=== PATIENT | female | born 1985 | race Caucasian/White ===

== ENCOUNTER 2016-07-15 11:17 | Inpatient (IN) | payer MEDICARE, MEDICAID ==
[~2016-07-15] VITALS: Ht 165.1 cm; Wt 85.5 kg
[2016-07-15] MEDS ORDERED: PALI156D IM (13:32)
[2016-07-15 13:58] VITALS: BP 125/61
[2016-07-15] MEDS ORDERED: INFLUENZA VIRUS VACCINE QVS 2016-17 (3YR+)/PF 60 MCG/0.5 ML SYRINGE IM ONE (14:15)
[2016-07-15] MEDS ORDERED: PALIPERIDONE PALMITATE 156 MG/ML SYRINGE IM SCH (16:00)
[2016-07-15 16:11] VITALS: BP 119/65
[2016-07-15 16:12] VITALS: BP 115/63
[2016-07-15 21:15] VITALS: BP 102/64
[2016-07-15] MEDS: ACETAMINOPHEN 325 MG TABLET PO PRN (21:15)
[2016-07-15 22:15] VITALS: BP 111/60
[2016-07-15] MEDS ORDERED: AZITHROMYCIN 250 MG TABLET PO ONE (22:31)
[2016-07-16 04:00] VITALS: BP 132/61
[2016-07-16] MEDS: IBUPROFEN 600 MG TABLET PO PRN (04:07)
[2016-07-16 08:19] LABS: BASOPHILS % (AUTO) 0.4 % (0.0-2.0); EOSINOPHILS % (AUTO) 0.8 % (1.0-6.0); HEMATOCRIT 38.6 % (36-46); HEMOGLOBIN 12.4 g/dL (12.0-16.0); LYMPHOCYTES # (AUTO) 1.5 K/uL (1.0-4.8); MEAN CORPUSCULAR HEMOGLOBIN 29.5 pg (26.0-34.0); MEAN CORPUSCULAR HGB CONC 32.2 G/dL (31.0-37.0); MEAN CORPUSCULAR VOLUME 92 fL (80-100); MONOCYTES # (AUTO) 1.3 K/uL (0.1-1.0); MONOCYTES % (AUTO) 11.5 % (2.0-9.0); NEUTROPHILS % (AUTO) 73.3 % (40.0-70.0); PLATELET COUNT (AUTO) 228 K/uL (150-450); RED BLOOD CELL COUNT(AUTO) 4.21 MIL/uL (4.00-5.20); RED CELL DISTRIBUTION WIDTH 13.6 % (11.5-14.5); WHITE BLOOD COUNT (AUTO) 10.9 K/uL (4.5-11.0)
[2016-07-16 08:28] VITALS: BP 126/84
[2016-07-16 08:29] LABS: HEMOGLOBIN A1C 5.9 % (4.5-6.2)
[2016-07-16 08:48] LABS: ALANINE AMINOTRANSFERASE 21 U/L (12-78); ALBUMIN 2.9 g/dL (3.4-5.0); ANION GAP 12 mmol/L (8-16); ASPARTATE AMINOTRANSFERASE 14 U/L (15-37); BILIRUBIN,TOTAL 0.2 mg/dL (0.1-1.0); CALCIUM, TOTAL 8.1 mg/dL (8.8-10.5); CARBON DIOXIDE 22 mmol/L (22-29); CHLORIDE 102 mmol/L (98-107); CHOL/HDL RATIO 2.3 (3.9-5.7); CREATINE KINASE, TOTAL 60 U/L (26-192); CREATININE 0.84 mg/dL (0.60-1.30); GLOMERULAR FILTR. RATE CALC > 60 mL/min (>60); POTASSIUM 3.2 mmol/L (3.5-5.1); SODIUM SERUM 136 mmol/L (136-145); THYROID STIMULATING HORMONE 3.22 uIU/mL (0.36-3.74); UREA NITROGEN, BLOOD 11 mg/dL (7-18)
[2016-07-16] MEDS ORDERED: PALIPERIDONE PALMITATE 156 MG/ML SYRINGE IM SCH (09:00)
[2016-07-16] MEDS: AZITHROMYCIN 250 MG TABLET PO SCH (09:43)
[2016-07-16] MEDS: LORazepam 2 MG TABLET PO PRN (09:44)
[2016-07-16] MEDS: HALOPERIDOL 5 MG TABLET PO PRN (09:44)
[2016-07-16] MEDS ORDERED: POTASSIUM CHLORIDE 20 MEQ ER TABLET PO ONE (11:15)
[2016-07-16] MEDS ORDERED: BENZOCAINE/MENTHOL LOZENGE PO PRN (15:45)
[2016-07-16 15:46] VITALS: BP 110/63
[2016-07-16] MEDS: ACETAMINOPHEN 325 MG TABLET PO PRN ×2 (15:46→22:50)
[2016-07-16 16:18] VITALS: BP 98/68
[2016-07-17 01:45] VITALS: BP 109/59
[2016-07-17] MEDS: ZOLPIDEM TARTRATE 10 MG TABLET PO PRN (01:46)
[2016-07-17 08:15] VITALS: BP 117/63
[2016-07-17] MEDS: LORazepam 2 MG TABLET PO PRN ×3 (08:25→20:25)
[2016-07-17] MEDS: AZITHROMYCIN 250 MG TABLET PO SCH (08:25)
[2016-07-17] MEDS: HALOPERIDOL 5 MG TABLET PO PRN ×2 (08:50→20:44)
[2016-07-17 10:16] LABS: HEPATITIS Bs ANTIGEN SCREEN P Negative (Negative); HEPATITIS C AB SCREEN <0.1 s/co ratio (0.0-0.9)
[2016-07-17 16:16] VITALS: BP 105/58
[2016-07-17 20:25] VITALS: BP 115/68
[2016-07-17] MEDS: IBUPROFEN 600 MG TABLET PO PRN (20:25)
[2016-07-18] MEDS ORDERED: HALOPERIDOL LACTATE 5 MG/ML VIAL ONE (05:12)
[2016-07-18] MEDS ORDERED: DiphenhydrAMINE HCL 50 MG/ML VIAL ONE (05:12)
[2016-07-18] MEDS ORDERED: DiphenhydrAMINE HCL 50 MG/ML VIAL IM ONE (05:15)
[2016-07-18] MEDS ORDERED: LORazepam 2 MG/ML VIAL IM ONE (05:15)
[2016-07-18] MEDS ORDERED: HALOPERIDOL LACTATE 5 MG/ML VIAL IM ONE (05:15)
[2016-07-18] MEDS: AZITHROMYCIN 250 MG TABLET PO SCH (08:41)
[2016-07-18] MEDS: CHOLECALCIFEROL (VIT D3) 2,000 UNITS TABLET PO SCH (09:11)
[2016-07-18] MEDS: HALOPERIDOL 5 MG TABLET PO PRN (14:23)
[2016-07-18] MEDS: LORazepam 2 MG TABLET PO PRN (14:23)
[2016-07-18 16:11] VITALS: BP 131/75
[2016-07-19 01:15] VITALS: BP 105/63
[2016-07-19] MEDS: IBUPROFEN 600 MG TABLET PO PRN (01:18)
[2016-07-19] MEDS: LORazepam 2 MG TABLET PO PRN ×2 (08:24→16:02)
[2016-07-19] MEDS: AZITHROMYCIN 250 MG TABLET PO SCH (08:24)
[2016-07-19] MEDS: CHOLECALCIFEROL (VIT D3) 2,000 UNITS TABLET PO SCH (08:24)
[2016-07-19] MEDS: HALOPERIDOL 5 MG TABLET PO PRN ×2 (08:38→16:02)
[2016-07-19 08:47] VITALS: BP 110/69
[2016-07-19 16:18] VITALS: BP 110/76
[2016-07-20 06:46] VITALS: BP 115/69
[2016-07-20 08:39] VITALS: BP 134/82
[2016-07-20] MEDS: CHOLECALCIFEROL (VIT D3) 2,000 UNITS TABLET PO SCH (09:11)
[2016-07-20] MEDS: HALOPERIDOL 5 MG TABLET PO PRN (09:11)
[2016-07-20] MEDS: LORazepam 2 MG TABLET PO PRN (09:11)
[2016-07-20 16:14] VITALS: BP 112/59
[2016-07-20] MEDS: ZOLPIDEM TARTRATE 10 MG TABLET PO PRN (21:59)
[2016-07-21] MEDS: LORazepam 2 MG TABLET PO PRN ×3 (02:32→16:27)
[2016-07-21] MEDS: HALOPERIDOL 5 MG TABLET PO PRN ×2 (02:32→16:27)
[2016-07-21 02:38] VITALS: BP 122/72
[2016-07-21] MEDS: CHOLECALCIFEROL (VIT D3) 2,000 UNITS TABLET PO SCH (08:35)
[2016-07-21 08:55] VITALS: BP 106/60
[2016-07-21 16:08] VITALS: BP 107/61
[2016-07-21] MEDS ORDERED: PALIPERIDONE 3 MG ER TABLET PO SCH (21:00)
[2016-07-22 05:34] VITALS: BP 130/75
[2016-07-22 08:38] VITALS: BP 113/78
[2016-07-22] MEDS ORDERED: DIVALPROEX SODIUM 500 MG DR TABLET PO SCH ×2 (09:00→21:00)
[2016-07-22] MEDS ORDERED: CHOLECALCIFEROL (VIT D3) 2,000 UNITS TABLET PO SCH (09:00)
[2016-07-22] MEDS ORDERED: BISACODYL 5 MG EC TABLET PO PRN (09:30)
[2016-07-22] MEDS ORDERED: PALI234D IM (12:57)
[2016-07-22] MEDS ORDERED: PALI3 PO (12:58)
[2016-07-22] MEDS ORDERED: DIVA500T35 PO ×2 (13:00→13:01)
[2016-07-22] MEDS ORDERED: CHOL200016 PO (13:02)
[2016-08-13] MEDS ORDERED: PALIPERIDONE PALMITATE 234 MG/1.5 ML SYRINGE IM SCH (09:00)
== END 2016-07-22 14:40 | disposition home or self-care (01) | DRG 885 ==
LOC: B3A 13:28
DX: F31.5 Bipolar disorder, current episode depressed, severe, with psychotic features (principal); F29 Unspecified psychosis not due to a substance or known physiological condition; F15.10 Other stimulant abuse, uncomplicated; F12.90 Cannabis use, unspecified, uncomplicated; E87.6 Hypokalemia; E55.9 Vitamin D deficiency, unspecified; J20.9 Acute bronchitis, unspecified; R73.9 Hyperglycemia, unspecified; F17.200 Nicotine dependence, unspecified, uncomplicated; Z79.899 Other long term (current) drug therapy; Z91.19 Patient's noncompliance with other medical treatment and regimen; Z81.3 Family history of other psychoactive substance abuse and dependence; Z80.8 Family history of malignant neoplasm of other organs or systems
CPT/HCPCS: 80074; 82306; 82607; 82746; 83036; 83735; 84132; 84439; 84443; 86592; 87081; J1200; J1630; J2060

== ENCOUNTER 2017-10-20 13:06 | Emergency (ER) | payer MEDICARE, MEDICAID ==
[~2017-10-20] VITALS: Ht 172.7 cm; Wt 86.4 kg
[~2017-10-20 13:06] MED LIST: CHOL200016 PO; DIVA500T35 PO; PALI234D IM; PALI3 PO
[2017-10-20] MEDS ORDERED: OLAN5TAB2 PO (13:15)
[2017-10-20 15:00] VITALS: BP 127/71
[2017-10-20] MEDS ORDERED: AZITHROMYCIN 250 MG TABLET PO ONE (15:15)
[2017-10-20] MEDS ORDERED: LORazepam 2 MG TABLET PO ONE (15:15)
[2017-10-20] MEDS ORDERED: HALOPERIDOL 5 MG TABLET PO ONE (15:15)
[2017-10-20 15:20] LABS: BASOPHILS % (AUTO) 1.9 % (0.0-2.0); EOSINOPHILS % (AUTO) 3.1 % (1.0-6.0); HEMOGLOBIN 13.1 g/dL (12.0-16.0); LYMPHOCYTES # (AUTO) 3.2 K/uL (1.0-4.8); LYMPHOCYTES % (AUTO) 37.1 % (22.0-44.0); MEAN CORPUSCULAR HGB CONC 35.3 G/dL (31.0-37.0); MEAN CORPUSCULAR VOLUME 88 fL (80-100); MONOCYTES # (AUTO) 1.1 K/uL (0.1-1.0); MONOCYTES % (AUTO) 13.3 % (2.0-9.0); NEUTROPHILS # (AUTO) 3.8 K/uL (1.8-7.7); NEUTROPHILS % (AUTO) 44.6 % (40.0-70.0); PLATELET COUNT (AUTO) 263 K/uL (150-450); RED BLOOD CELL COUNT(AUTO) 4.21 MIL/uL (4.00-5.20); RED CELL DISTRIBUTION WIDTH 13.9 % (11.5-14.5)
[2017-10-20 15:32] LABS: ANION GAP 9 mmol/L (8-16); CALCIUM, TOTAL 8.3 mg/dL (8.8-10.5); CARBON DIOXIDE 25 mmol/L (22-29); CHLORIDE 105 mmol/L (98-107); CREATININE 0.76 mg/dL (0.60-1.30); GLOMERULAR FILTR. RATE CALC > 60 mL/min (>60); GLUCOSE,RANDOM 113 mg/dL (70-110); POTASSIUM 3.3 mmol/L (3.5-5.1); SODIUM SERUM 139 mmol/L (136-145); UREA NITROGEN, BLOOD 15 mg/dL (7-18)
[2017-10-20 15:40] LABS: ALANINE AMINOTRANSFERASE 35 U/L (12-78); ALBUMIN 3.4 g/dL (3.4-5.0); ALKALINE PHOSPHATASE 87 U/L (46-116); ASPARTATE AMINOTRANSFERASE 33 U/L (15-37); BILIRUBIN,TOTAL 0.5 mg/dL (0.1-1.0); TOTAL PROTEIN, SERUM 7.1 g/dL (6.4-8.2)
[2017-10-20 15:41] LABS: AMPHET/METH SCREEN,URINE POSITIVE (NEGATIVE); BARBITURATE SCREEN, URINE NEGATIVE (NEGATIVE); BENZODIAZEPINES SCREEN,URINE NEGATIVE (NEGATIVE); CANNABINOID SCREEN,URINE POSITIVE (NEGATIVE); COCAINE SCREEN,URINE NEGATIVE (NEGATIVE); METHADONE SCREEN, URINE NEGATIVE (NEGATIVE); OPIATE SCREEN,URINE NEGATIVE (NEGATIVE)
[2017-10-20 15:44] LABS: PHENCYCLIDINE SCREEN,URINE NEGATIVE (NEGATIVE)
== END 2017-10-20 16:09 | disposition home or self-care (01) ==
LOC: EMS 13:07
DX: J40 Bronchitis, not specified as acute or chronic (principal); F17.210 Nicotine dependence, cigarettes, uncomplicated; F12.10 Cannabis abuse, uncomplicated; Z79.899 Other long term (current) drug therapy
CPT/HCPCS: 36415; 80053; 80307; 85025; 99284; G0480

== ENCOUNTER 2017-10-23 13:25 | Inpatient (IN) | payer MEDICARE, MEDICAID ==
[~2017-10-23] VITALS: Ht 165.1 cm; Wt 92.5 kg
[~2017-10-23 13:25] MED LIST changes: +OLAN5TAB2 PO
[2017-10-23] MEDS ORDERED: DiphenhydrAMINE HCL 50 MG/ML VIAL IM ONE (14:30)
[2017-10-23] MEDS ORDERED: HALOPERIDOL LACTATE 5 MG/ML VIAL IM ONE (14:30)
[2017-10-23] MEDS ORDERED: LORazepam 2 MG/ML VIAL IM ONE (14:30)
[2017-10-23 14:38] LABS: AMPHET/METH SCREEN,URINE POSITIVE (NEGATIVE); BARBITURATE SCREEN, URINE NEGATIVE (NEGATIVE); BENZODIAZEPINES SCREEN,URINE NEGATIVE (NEGATIVE); CANNABINOID SCREEN,URINE POSITIVE (NEGATIVE); COCAINE SCREEN,URINE NEGATIVE (NEGATIVE); METHADONE SCREEN, URINE NEGATIVE (NEGATIVE); OPIATE SCREEN,URINE NEGATIVE (NEGATIVE)
[2017-10-23 14:40] LABS: PHENCYCLIDINE SCREEN,URINE NEGATIVE (NEGATIVE)
[2017-10-23 14:53] LABS: BASOPHILS % (AUTO) 1.2 % (0.0-2.0); EOSINOPHILS % (AUTO) 2.9 % (1.0-6.0); HEMOGLOBIN 12.9 g/dL (12.0-16.0); LYMPHOCYTES # (AUTO) 2.7 K/uL (1.0-4.8); LYMPHOCYTES % (AUTO) 36.3 % (22.0-44.0); MEAN CORPUSCULAR HEMOGLOBIN 31.3 pg (26.0-34.0); MEAN CORPUSCULAR HGB CONC 34.9 G/dL (31.0-37.0); MEAN CORPUSCULAR VOLUME 90 fL (80-100); MONOCYTES # (AUTO) 0.8 K/uL (0.1-1.0); MONOCYTES % (AUTO) 11.1 % (2.0-9.0); NEUTROPHILS # (AUTO) 3.6 K/uL (1.8-7.7); NEUTROPHILS % (AUTO) 48.5 % (40.0-70.0); PLATELET COUNT (AUTO) 244 K/uL (150-450); RED BLOOD CELL COUNT(AUTO) 4.13 MIL/uL (4.00-5.20); RED CELL DISTRIBUTION WIDTH 13.5 % (11.5-14.5)
[2017-10-23 15:15] LABS: ANION GAP 9 mmol/L (8-16); CALCIUM, TOTAL 7.8 mg/dL (8.8-10.5); CARBON DIOXIDE 23 mmol/L (22-29); CHLORIDE 109 mmol/L (98-107); CREATININE 0.62 mg/dL (0.60-1.30); GLOMERULAR FILTR. RATE CALC > 60 mL/min (>60); GLUCOSE,RANDOM 94 mg/dL (70-110); POTASSIUM 3.7 mmol/L (3.5-5.1); SODIUM SERUM 141 mmol/L (136-145); UREA NITROGEN, BLOOD 9 mg/dL (7-18)
[2017-10-23 15:22] LABS: ALANINE AMINOTRANSFERASE 30 U/L (12-78); ALBUMIN 3.2 g/dL (3.4-5.0); ALKALINE PHOSPHATASE 91 U/L (46-116); ASPARTATE AMINOTRANSFERASE 25 U/L (15-37); BILIRUBIN,TOTAL 0.1 mg/dL (0.1-1.0); TOTAL PROTEIN, SERUM 6.9 g/dL (6.4-8.2)
[2017-10-23 19:56] VITALS: BP 112/65
[2017-10-24 05:36] VITALS: BP 110/70
[2017-10-24] MEDS: DIVALPROEX SODIUM 500 MG DR TABLET PO SCH ×2 (09:00→20:21)
[2017-10-24 09:30] VITALS: BP 113/82
[2017-10-24] MEDS: OLANZapine 5 MG TABLET PO SCH (09:40)
[2017-10-24] MEDS: LORazepam 2 MG TABLET PO PRN (16:44)
[2017-10-24] MEDS: HALOPERIDOL 5 MG TABLET PO PRN (16:44)
[2017-10-24] MEDS: OLANZapine 10 MG TABLET PO SCH (20:21)
[2017-10-24] MEDS: ZOLPIDEM TARTRATE 10 MG TABLET PO PRN (21:21)
[2017-10-25 04:59] VITALS: BP 114/86
[2017-10-25] MEDS: LORazepam 2 MG TABLET PO PRN ×3 (05:01→17:08)
[2017-10-25] MEDS: HALOPERIDOL 5 MG TABLET PO PRN ×3 (05:01→17:08)
[2017-10-25 08:01] LABS: HEMOGLOBIN A1C 6.3 % (4.5-6.2)
[2017-10-25 08:22] VITALS: BP 121/73
[2017-10-25 08:22] LABS: CHOL/HDL RATIO 2.4 (3.9-5.7); FREE T4 (FREE THYROXINE) 1.09 ng/dL (0.76-1.46); THYROID STIMULATING HORMONE 2.1 uIU/mL (0.36-3.74)
[2017-10-25] MEDS: DIVALPROEX SODIUM 500 MG DR TABLET PO SCH ×2 (08:55→21:23)
[2017-10-25] MEDS: OLANZapine 5 MG TABLET PO SCH (08:55)
[2017-10-25 16:16] VITALS: BP 124/70
[2017-10-25] MEDS: OLANZapine 10 MG TABLET PO SCH (21:23)
[2017-10-25] MEDS: ZOLPIDEM TARTRATE 10 MG TABLET PO PRN (22:04)
[2017-10-26 06:46] VITALS: BP 127/73
[2017-10-26] MEDS: LORazepam 2 MG TABLET PO PRN ×3 (06:51→16:37)
[2017-10-26] MEDS: HALOPERIDOL 5 MG TABLET PO PRN ×3 (06:51→16:37)
[2017-10-26] MEDS: OLANZapine 5 MG TABLET PO SCH (08:38)
[2017-10-26] MEDS: DIVALPROEX SODIUM 500 MG DR TABLET PO SCH ×2 (08:39→20:24)
[2017-10-26 09:59] VITALS: BP 125/82
[2017-10-26 16:05] VITALS: BP 135/68
[2017-10-26] MEDS: OLANZapine 10 MG TABLET PO SCH (20:24)
[2017-10-27 08:40] VITALS: BP 113/65
[2017-10-27] MEDS ORDERED: INSULIN LISPRO 100 UNITS/ML SQ PRN (09:30)
[2017-10-27] MEDS ORDERED: GLUCAGON,HUMAN RECOMBINANT 1 MG VIAL IM PRN (09:30)
[2017-10-27] MEDS: DIVALPROEX SODIUM 500 MG DR TABLET PO SCH ×2 (09:30→21:09)
[2017-10-27] MEDS: CHOLECALCIFEROL (VIT D3) 1,000 UNITS TABLET PO SCH (09:30)
[2017-10-27] MEDS: HALOPERIDOL 5 MG TABLET PO PRN ×2 (09:31→21:08)
[2017-10-27] MEDS: LORazepam 2 MG TABLET PO PRN ×2 (09:31→21:08)
[2017-10-27] MEDS: OLANZapine 5 MG TABLET PO SCH (09:31)
[2017-10-27] MEDS ORDERED: DiphenhydrAMINE HCL 50 MG/ML VIAL IM ONE (11:15)
[2017-10-27] MEDS ORDERED: HALOPERIDOL LACTATE 5 MG/ML VIAL IM ONE (11:15)
[2017-10-27] MEDS ORDERED: LORazepam 2 MG/ML VIAL IM ONE (11:15)
[2017-10-27 16:41] VITALS: BP 113/61
[2017-10-27] MEDS: OLANZapine 10 MG TABLET PO SCH (21:09)
[2017-10-28 05:00] VITALS: BP 116/64
[2017-10-28 06:08] LABS: GLUCOMETER DEV NAME(LOC) BV3S 2; GLUCOSE,POINT OF CARE 68 MG/DL (70-110)
[2017-10-28 06:08] LABS: GLUCOMETER DEV NAME(LOC) BV3S 2; GLUCOSE,POINT OF CARE 90 MG/DL (70-110)
[2017-10-28] MEDS: CHOLECALCIFEROL (VIT D3) 1,000 UNITS TABLET PO SCH (08:34)
[2017-10-28] MEDS: OLANZapine 5 MG TABLET PO SCH (08:34)
[2017-10-28] MEDS: DIVALPROEX SODIUM 500 MG DR TABLET PO SCH ×2 (08:34→20:42)
[2017-10-28] MEDS: LORazepam 2 MG TABLET PO PRN ×2 (08:35→16:58)
[2017-10-28] MEDS: HALOPERIDOL 5 MG TABLET PO PRN ×2 (09:10→16:58)
[2017-10-28 09:24] VITALS: BP 115/66
[2017-10-28 16:33] LABS: GLUCOMETER DEV NAME(LOC) BV3S 2; GLUCOSE,POINT OF CARE 87 MG/DL (70-110)
[2017-10-28 17:14] VITALS: BP 114/73
[2017-10-28] MEDS: OLANZapine 10 MG TABLET PO SCH (20:42)
[2017-10-29 04:35] VITALS: BP 112/74
[2017-10-29 08:13] VITALS: BP 114/72
[2017-10-29] MEDS: DIVALPROEX SODIUM 500 MG DR TABLET PO SCH ×2 (08:41→20:34)
[2017-10-29] MEDS: OLANZapine 5 MG TABLET PO SCH (08:41)
[2017-10-29] MEDS: CHOLECALCIFEROL (VIT D3) 1,000 UNITS TABLET PO SCH (08:41)
[2017-10-29 16:00] VITALS: BP 140/79
[2017-10-29] MEDS: HALOPERIDOL 5 MG TABLET PO PRN (16:14)
[2017-10-29] MEDS: LORazepam 2 MG TABLET PO PRN (16:14)
[2017-10-29 18:18] LABS: GLUCOMETER DEV NAME(LOC) BV3S 2; GLUCOSE,POINT OF CARE 94 MG/DL (70-110)
[2017-10-29 18:18] LABS: GLUCOMETER DEV NAME(LOC) BV3S 2; GLUCOSE,POINT OF CARE 86 MG/DL (70-110)
[2017-10-29] MEDS: OLANZapine 10 MG TABLET PO SCH (20:34)
[2017-10-30 01:33] VITALS: BP 133/81
[2017-10-30 06:22] LABS: GLUCOMETER DEV NAME(LOC) BV3S 2; GLUCOSE,POINT OF CARE 96 MG/DL (70-110)
[2017-10-30 08:26] VITALS: BP 127/78
[2017-10-30] MEDS: DIVALPROEX SODIUM 500 MG DR TABLET PO SCH ×2 (08:40→20:04)
[2017-10-30] MEDS: HALOPERIDOL 5 MG TABLET PO PRN ×2 (08:41→15:53)
[2017-10-30] MEDS: CHOLECALCIFEROL (VIT D3) 1,000 UNITS TABLET PO SCH (08:41)
[2017-10-30] MEDS: LORazepam 2 MG TABLET PO PRN ×2 (08:41→15:52)
[2017-10-30] MEDS: OLANZapine 5 MG TABLET PO SCH (08:41)
[2017-10-30 16:07] VITALS: BP 102/65
[2017-10-30] MEDS: OLANZapine 10 MG TABLET PO SCH (20:04)
[2017-10-30 23:52] LABS: GLUCOMETER DEV NAME(LOC) BV3S 2; GLUCOSE,POINT OF CARE 100 MG/DL (70-110)
[2017-10-31 00:38] VITALS: BP 118/80
[2017-10-31 06:28] LABS: GLUCOMETER DEV NAME(LOC) BV3S 2; GLUCOSE,POINT OF CARE 89 MG/DL (70-110)
[2017-10-31 08:16] VITALS: BP 108/74
[2017-10-31] MEDS: LORazepam 2 MG TABLET PO PRN ×2 (08:41→16:05)
[2017-10-31] MEDS: CHOLECALCIFEROL (VIT D3) 1,000 UNITS TABLET PO SCH (08:41)
[2017-10-31] MEDS: DIVALPROEX SODIUM 500 MG DR TABLET PO SCH ×2 (08:42→20:26)
[2017-10-31] MEDS: HALOPERIDOL 5 MG TABLET PO PRN ×2 (08:42→16:05)
[2017-10-31] MEDS: OLANZapine 5 MG TABLET PO SCH (08:42)
[2017-10-31 16:14] VITALS: BP 111/71
[2017-10-31] MEDS: OLANZapine 10 MG TABLET PO SCH (20:26)
[2017-10-31 23:22] LABS: GLUCOMETER DEV NAME(LOC) BV3S 2; GLUCOSE,POINT OF CARE 100 MG/DL (70-110)
[2017-11-01 00:18] VITALS: BP 117/73
[2017-11-01 06:23] LABS: GLUCOMETER DEV NAME(LOC) BV3S 2; GLUCOSE,POINT OF CARE 80 MG/DL (70-110)
[2017-11-01] MEDS: CHOLECALCIFEROL (VIT D3) 1,000 UNITS TABLET PO SCH (08:14)
[2017-11-01] MEDS: DIVALPROEX SODIUM 500 MG DR TABLET PO SCH ×2 (08:14→20:10)
[2017-11-01] MEDS: LORazepam 2 MG TABLET PO PRN ×2 (08:15→15:51)
[2017-11-01 08:16] VITALS: BP 127/60
[2017-11-01] MEDS: HALOPERIDOL 5 MG TABLET PO PRN ×2 (08:28→15:51)
[2017-11-01] MEDS: OLANZapine 5 MG TABLET PO SCH (08:29)
[2017-11-01 16:00] VITALS: BP 136/73
[2017-11-01] MEDS: OLANZapine 10 MG TABLET PO SCH (20:11)
[2017-11-01 23:47] LABS: GLUCOMETER DEV NAME(LOC) BV3S 2; GLUCOSE,POINT OF CARE 83 MG/DL (70-110)
[2017-11-02 04:36] VITALS: BP 134/70
[2017-11-02 06:24] LABS: GLUCOMETER DEV NAME(LOC) BV3S 2; GLUCOSE,POINT OF CARE 87 MG/DL (70-110)
[2017-11-02] MEDS: OLANZapine 5 MG TABLET PO SCH (08:13)
[2017-11-02] MEDS: CHOLECALCIFEROL (VIT D3) 1,000 UNITS TABLET PO SCH (08:13)
[2017-11-02] MEDS: DIVALPROEX SODIUM 500 MG DR TABLET PO SCH ×2 (08:13→20:03)
[2017-11-02] MEDS: HALOPERIDOL 5 MG TABLET PO PRN ×2 (08:13→15:56)
[2017-11-02] MEDS: LORazepam 2 MG TABLET PO PRN ×2 (08:13→15:56)
[2017-11-02 08:22] VITALS: BP 132/71
[2017-11-02 16:05] VITALS: BP 114/69
[2017-11-02] MEDS: OLANZapine 10 MG TABLET PO SCH (20:03)
[2017-11-03 06:39] LABS: GLUCOMETER DEV NAME(LOC) BV3S 2; GLUCOSE,POINT OF CARE 119 MG/DL (70-110)
[2017-11-03 06:39] LABS: GLUCOMETER DEV NAME(LOC) BV3S 2; GLUCOSE,POINT OF CARE 84 MG/DL (70-110)
[2017-11-03 08:09] VITALS: BP 114/67
[2017-11-03] MEDS: DIVALPROEX SODIUM 500 MG DR TABLET PO SCH ×2 (08:45→20:14)
[2017-11-03] MEDS: OLANZapine 5 MG TABLET PO SCH (08:45)
[2017-11-03] MEDS: CHOLECALCIFEROL (VIT D3) 1,000 UNITS TABLET PO SCH (08:46)
[2017-11-03] MEDS: LORazepam 2 MG TABLET PO PRN ×2 (09:24→16:17)
[2017-11-03] MEDS: HALOPERIDOL 5 MG TABLET PO PRN (16:17)
[2017-11-03 16:31] VITALS: BP 112/68
[2017-11-03] MEDS: OLANZapine 10 MG TABLET PO SCH (20:14)
[2017-11-03 22:49] LABS: GLUCOMETER DEV NAME(LOC) BV3S 2; GLUCOSE,POINT OF CARE 106 MG/DL (70-110)
[2017-11-04 05:36] VITALS: BP 128/64
[2017-11-04 06:17] LABS: GLUCOMETER DEV NAME(LOC) BV3S 2; GLUCOSE,POINT OF CARE 78 MG/DL (70-110)
[2017-11-04 08:12] VITALS: BP 148/66
[2017-11-04] MEDS: DIVALPROEX SODIUM 500 MG DR TABLET PO SCH ×2 (09:14→20:09)
[2017-11-04] MEDS: CHOLECALCIFEROL (VIT D3) 1,000 UNITS TABLET PO SCH (09:14)
[2017-11-04] MEDS: LORazepam 2 MG TABLET PO PRN ×2 (09:15→16:24)
[2017-11-04] MEDS: OLANZapine 5 MG TABLET PO SCH (09:15)
[2017-11-04] MEDS: HALOPERIDOL 5 MG TABLET PO PRN ×2 (09:15→16:24)
[2017-11-04 16:04] VITALS: BP 107/70
[2017-11-04 17:03] LABS: GLUCOMETER DEV NAME(LOC) BV3S 2; GLUCOSE,POINT OF CARE 97 MG/DL (70-110)
[2017-11-04] MEDS: OLANZapine 10 MG TABLET PO SCH (20:09)
[2017-11-04] MEDS: ZOLPIDEM TARTRATE 10 MG TABLET PO PRN (22:25)
[2017-11-05 05:34] VITALS: BP 126/70
[2017-11-05 08:17] VITALS: BP 102/55
[2017-11-05] MEDS: CHOLECALCIFEROL (VIT D3) 1,000 UNITS TABLET PO SCH (08:53)
[2017-11-05] MEDS: HALOPERIDOL 5 MG TABLET PO PRN (08:54)
[2017-11-05] MEDS: LORazepam 2 MG TABLET PO PRN (08:54)
[2017-11-05] MEDS: DIVALPROEX SODIUM 500 MG DR TABLET PO SCH (08:54)
[2017-11-05] MEDS ORDERED: OLAN10TA20 PO (09:54)
[2017-11-05] MEDS ORDERED: OLAN5TAB27 PO (09:54)
[2017-11-05] MEDS ORDERED: DIVA500T35 PO ×2 (09:54)
[2017-11-05] MEDS ORDERED: VITAD1000 PO (09:58)
[2017-11-05] MEDS ORDERED: OLAN10TA3 PO (09:58)
[2017-11-05] MEDS: OLANZapine 5 MG TABLET PO SCH (10:38)
[2017-11-06 07:17] LABS: GLUCOMETER DEV NAME(LOC) BV3S 2; GLUCOSE,POINT OF CARE 79 MG/DL (70-110)
== END 2017-11-05 10:45 | disposition home or self-care (01) | DRG 885 ==
LOC: EMS 13:26 → B3A 18:24
DX: F31.2 Bipolar disorder, current episode manic severe with psychotic features (principal); E55.9 Vitamin D deficiency, unspecified; E66.9 Obesity, unspecified; E11.9 Type 2 diabetes mellitus without complications; F15.10 Other stimulant abuse, uncomplicated; F12.10 Cannabis abuse, uncomplicated; F41.9 Anxiety disorder, unspecified; I10 Essential (primary) hypertension; F17.210 Nicotine dependence, cigarettes, uncomplicated; Z79.899 Other long term (current) drug therapy; Z68.33 Body mass index [BMI] 33.0-33.9, adult
CPT/HCPCS: 82306; 83036; 84439; 84443; 96372; 99285; G0480; J1200; J1630; J2060

== ENCOUNTER 2017-12-14 17:34 | Inpatient (IN) | payer MEDICARE, MEDICAID ==
[~2017-12-14] VITALS: Ht 165.1 cm; Wt 87.7 kg
[~2017-12-14 17:34] MED LIST changes: -CHOL200016 PO; +DIVA-78 PO; -DIVA500T35 PO; +OLAN10TA20 PO; +OLAN10TA3 PO; +OLAN5TAB27 PO; -PALI234D IM; -PALI3 PO; +VITAD1000 PO
[2017-12-14 18:39] LABS: EOSINOPHILS % (AUTO) 1.6 % (1.0-6.0); HEMATOCRIT 36.6 % (36-46); HEMOGLOBIN 12.7 g/dL (12.0-16.0); LYMPHOCYTES # (AUTO) 2.4 K/uL (1.0-4.8); LYMPHOCYTES % (AUTO) 22.5 % (22.0-44.0); MEAN CORPUSCULAR HEMOGLOBIN 31.3 pg (26.0-34.0); MEAN CORPUSCULAR HGB CONC 34.8 G/dL (31.0-37.0); MEAN CORPUSCULAR VOLUME 90 fL (80-100); MONOCYTES # (AUTO) 1.1 K/uL (0.1-1.0); MONOCYTES % (AUTO) 10.2 % (2.0-9.0); NEUTROPHILS # (AUTO) 6.8 K/uL (1.8-7.7); NEUTROPHILS % (AUTO) 64.7 % (40.0-70.0); PLATELET COUNT (AUTO) 219 K/uL (150-450); RED BLOOD CELL COUNT(AUTO) 4.07 MIL/uL (4.00-5.20)
[2017-12-14 18:49] LABS: ANION GAP 8 mmol/L (8-16); CALCIUM, TOTAL 8.4 mg/dL (8.8-10.5); CARBON DIOXIDE 24 mmol/L (22-29); CHLORIDE 106 mmol/L (98-107); CREATININE 0.85 mg/dL (0.60-1.30); GLOMERULAR FILTR. RATE CALC > 60 mL/min (>60); GLUCOSE,RANDOM 89 mg/dL (70-110); POTASSIUM 3.9 mmol/L (3.5-5.1); SODIUM SERUM 138 mmol/L (136-145); UREA NITROGEN, BLOOD 10 mg/dL (7-18)
[2017-12-14] MEDS ORDERED: DiphenhydrAMINE HCL 50 MG/ML VIAL ONE (18:53)
[2017-12-14] MEDS ORDERED: HALOPERIDOL LACTATE 5 MG/ML VIAL ONE (18:53)
[2017-12-14] MEDS ORDERED: LORazepam 2 MG/ML VIAL ONE (18:53)
[2017-12-14 18:55] LABS: ALANINE AMINOTRANSFERASE 22 U/L (12-78); ALBUMIN 3.5 g/dL (3.4-5.0); ALKALINE PHOSPHATASE 72 U/L (46-116); ASPARTATE AMINOTRANSFERASE 16 U/L (15-37); BILIRUBIN,TOTAL 0.3 mg/dL (0.1-1.0); TOTAL PROTEIN, SERUM 7.5 g/dL (6.4-8.2)
[2017-12-14] MEDS ORDERED: LORazepam 2 MG/ML VIAL IM ONE (19:00)
[2017-12-14] MEDS ORDERED: DiphenhydrAMINE HCL 50 MG/ML VIAL IM ONE (19:00)
[2017-12-14] MEDS ORDERED: HALOPERIDOL LACTATE 5 MG/ML VIAL IM ONE (19:00)
[2017-12-14] MEDS ORDERED: ZOLPIDEM TARTRATE 10 MG TABLET PO PRN (19:30)
[2017-12-14] MEDS ORDERED: LORazepam 2 MG TABLET PO PRN (19:30)
[2017-12-14 20:29] LABS: VALPROIC ACID 10 mcg/mL (50-100)
[2017-12-14 20:47] VITALS: BP 140/77
[2017-12-14] MEDS ORDERED: IBUPROFEN 400 MG TABLET PO PRN (21:15)
[2017-12-14] MEDS ORDERED: CloNIDine HCL 0.1 MG TABLET PO PRN (21:15)
[2017-12-14] MEDS ORDERED: PETROLATUM,WHITE 71 GM JELLY TP PRN (21:15)
[2017-12-14] MEDS ORDERED: MAGNESIUM HYDROXIDE SUSPENSION 30 ML UDCUP PO PRN (21:15)
[2017-12-14] MEDS ORDERED: MAG HYDROX/AL HYDROX/SIMETH ES 30 ML SUSPENSION UDCUP PO PRN (21:15)
[2017-12-14] MEDS ORDERED: ONDANSETRON HCL 4 MG TABLET PO PRN (21:15)
[2017-12-14] MEDS ORDERED: LOPERAMIDE HCL 2 MG CAPSULE PO PRN (21:15)
[2017-12-14] MEDS ORDERED: ACETAMINOPHEN 325 MG TABLET PO PRN (21:15)
[2017-12-14] MEDS ORDERED: DOCUSATE SODIUM 100 MG CAPSULE PO PRN (21:15)
[2017-12-14] MEDS ORDERED: ALBUTEROL SULFATE HFA 90 MCG/PUFF 8 GM INHALER IH PRN (21:15)
[2017-12-15 05:33] VITALS: BP 139/77
[2017-12-15 06:45] LABS: GLUCOMETER DEV NAME(LOC) BV3S 2; GLUCOSE,POINT OF CARE 77 MG/DL (70-110)
[2017-12-15 08:52] LABS: BASOPHILS % (AUTO) 0.8 % (0.0-2.0); EOSINOPHILS % (AUTO) 4.5 % (1.0-6.0); HEMOGLOBIN 12.4 g/dL (12.0-16.0); LYMPHOCYTES # (AUTO) 2.4 K/uL (1.0-4.8); LYMPHOCYTES % (AUTO) 32.8 % (22.0-44.0); MEAN CORPUSCULAR HEMOGLOBIN 31.1 pg (26.0-34.0); MEAN CORPUSCULAR HGB CONC 34.4 G/dL (31.0-37.0); MEAN CORPUSCULAR VOLUME 90 fL (80-100); MONOCYTES # (AUTO) 0.8 K/uL (0.1-1.0); MONOCYTES % (AUTO) 11.3 % (2.0-9.0); NEUTROPHILS # (AUTO) 3.6 K/uL (1.8-7.7); NEUTROPHILS % (AUTO) 50.6 % (40.0-70.0); PLATELET COUNT (AUTO) 218 K/uL (150-450); RED BLOOD CELL COUNT(AUTO) 3.98 MIL/uL (4.00-5.20); RED CELL DISTRIBUTION WIDTH 14.4 % (11.5-14.5)
[2017-12-15 09:08] LABS: HEMOGLOBIN A1C 6.1 % (4.5-6.2)
[2017-12-15 09:14] LABS: ALANINE AMINOTRANSFERASE 17 U/L (12-78); ALBUMIN 3.2 g/dL (3.4-5.0); ALKALINE PHOSPHATASE 64 U/L (46-116); ANION GAP 5 mmol/L (8-16); ASPARTATE AMINOTRANSFERASE 18 U/L (15-37); BILIRUBIN,TOTAL 0.5 mg/dL (0.1-1.0); CALCIUM, TOTAL 8.4 mg/dL (8.8-10.5); CARBON DIOXIDE 26 mmol/L (22-29); CHLORIDE 107 mmol/L (98-107); CHOL/HDL RATIO 2.4 (3.9-5.7); CHOLESTEROL 86 mg/dL (131-200); CREATININE 0.71 mg/dL (0.60-1.30); GLOMERULAR FILTR. RATE CALC > 60 mL/min (>60); GLUCOSE,RANDOM 65 mg/dL (70-110); HDL CHOLESTEROL 36 mg/dL (40-60); LDL CHOL (CALC.) 39 mg/dL (0-130); POTASSIUM 3.4 mmol/L (3.5-5.1); SODIUM SERUM 138 mmol/L (136-145); THYROID STIMULATING HORMONE 3.01 uIU/mL (0.36-3.74); TOTAL PROTEIN, SERUM 6.9 g/dL (6.4-8.2); TRIGLYCERIDES 55 mg/dL (15-150); UREA NITROGEN, BLOOD 9 mg/dL (7-18)
[2017-12-15 09:33] LABS: FREE T4 (FREE THYROXINE) 1.07 ng/dL (0.76-1.46)
[2017-12-15] MEDS: DIVALPROEX SODIUM 500 MG DR TABLET PO SCH (10:38)
[2017-12-15] MEDS: OLANZapine 10 MG TABLET PO SCH (10:39)
[2017-12-15 16:07] VITALS: BP 109/64
[2017-12-15 17:09] LABS: GLUCOMETER DEV NAME(LOC) BV3S 2; GLUCOSE,POINT OF CARE 141 MG/DL (70-110)
[2017-12-15] MEDS ORDERED: DIVALPROEX SODIUM 500 MG DR TABLET PO SCH (21:00)
[2017-12-16 04:00] VITALS: BP 136/72
[2017-12-16 06:59] LABS: GLUCOMETER DEV NAME(LOC) BV3S 2; GLUCOSE,POINT OF CARE 93 MG/DL (70-110)
[2017-12-16 08:33] VITALS: BP 118/72
[2017-12-16] MEDS: OLANZapine 10 MG TABLET PO SCH ×2 (09:00→10:02)
[2017-12-16] MEDS: DIVALPROEX SODIUM 500 MG DR TABLET PO SCH (09:00)
[2017-12-16] MEDS: HALOPERIDOL 5 MG TABLET PO PRN (10:08)
[2017-12-16] MEDS ORDERED: PRENATAL VIT#96/FERROUS FUM/FA TABLET PO ONE (14:45)
[2017-12-16 16:33] LABS: GLUCOMETER DEV NAME(LOC) BV3S 2; GLUCOSE,POINT OF CARE 92 MG/DL (70-110)
[2017-12-17 06:09] VITALS: BP 122/76
[2017-12-17 06:34] LABS: GLUCOMETER DEV NAME(LOC) BV3S 2; GLUCOSE,POINT OF CARE 85 MG/DL (70-110)
[2017-12-17 08:00] VITALS: BP 101/62
[2017-12-17] MEDS: OLANZapine 10 MG TABLET PO SCH (08:42)
[2017-12-17] MEDS: PRENATAL VIT#96/FERROUS FUM/FA TABLET PO SCH (08:42)
[2017-12-17 08:46] LABS: APPEARANCE,URINE CLOUDY (CLEAR); BILIRUBIN,URINE NEGATIVE (NEGATIVE); GLUCOSE, URINE (UA) NEGATIVE (NEGATIVE); KETONES,URINE TRACE mg/dL (NEGATIVE); LEUKOCYTE ESTERASE ,URINE SMALL (NEGATIVE); NITRATE,URINE NEGATIVE (NEGATIVE); OCCULT BLOOD,URINE NEGATIVE (NEGATIVE); PROTEIN,URINE NEGATIVE (NEGATIVE); UROBILINOGEN,URINE 0.2 mg/dL (<=1.0)
[2017-12-17 08:49] LABS: AMPHET/METH SCREEN,URINE POSITIVE (NEGATIVE); BARBITURATE SCREEN, URINE NEGATIVE (NEGATIVE); BENZODIAZEPINES SCREEN,URINE NEGATIVE (NEGATIVE); CANNABINOID SCREEN,URINE POSITIVE (NEGATIVE); COCAINE SCREEN,URINE NEGATIVE (NEGATIVE); METHADONE SCREEN, URINE NEGATIVE (NEGATIVE); OPIATE SCREEN,URINE NEGATIVE (NEGATIVE); PHENCYCLIDINE SCREEN,URINE NEGATIVE (NEGATIVE)
[2017-12-17 08:54] LABS: BACTERIA,URINE Many /HPF (None Seen); SQUAMOUS EPITHELIAL CELL,UR Many /LPF (None Seen)
[2017-12-17 16:13] VITALS: BP 100/67
[2017-12-17 16:44] LABS: GLUCOMETER DEV NAME(LOC) BV3S 2; GLUCOSE,POINT OF CARE 118 MG/DL (70-110)
[2017-12-18 01:40] VITALS: BP 110/70
[2017-12-18] MEDS: OLANZapine 10 MG TABLET PO SCH (08:52)
[2017-12-18] MEDS: PRENATAL VIT#96/FERROUS FUM/FA TABLET PO SCH (08:52)
[2017-12-18 10:03] VITALS: BP 115/64
[2017-12-18 16:07] VITALS: BP 113/67
[2017-12-18 16:48] LABS: GLUCOMETER DEV NAME(LOC) BV3S 2; GLUCOSE,POINT OF CARE 172 MG/DL (70-110)
[2017-12-18] MEDS: MUPIROCIN CALCIUM 2% 22 GM OINTMENT NASAL SCH (21:43)
[2017-12-19 06:25] VITALS: BP 110/65
[2017-12-19] MEDS: OLANZapine 10 MG TABLET PO SCH (08:38)
[2017-12-19] MEDS: PRENATAL VIT#96/FERROUS FUM/FA TABLET PO SCH (08:38)
[2017-12-19] MEDS: MUPIROCIN CALCIUM 2% 22 GM OINTMENT NASAL SCH ×2 (08:38→16:40)
[2017-12-19 09:25] LABS: POTASSIUM 3.6 mmol/L (3.5-5.1)
[2017-12-19 16:03] VITALS: BP 125/76
[2017-12-19] MEDS: HALOPERIDOL 5 MG TABLET PO PRN (17:36)
[2017-12-20 06:40] VITALS: BP 106/61
[2017-12-20 08:11] VITALS: BP 118/66
[2017-12-20] MEDS: OLANZapine 7.5 MG TABLET PO SCH (08:55)
[2017-12-20] MEDS: MUPIROCIN CALCIUM 2% 22 GM OINTMENT NASAL SCH ×2 (08:55→16:59)
[2017-12-20] MEDS: PRENATAL VIT#96/FERROUS FUM/FA TABLET PO SCH (08:55)
[2017-12-20 16:07] VITALS: BP 105/66
[2017-12-20 16:45] VITALS: BP 147/79
[2017-12-21] MEDS: HALOPERIDOL 5 MG TABLET PO PRN (00:30)
[2017-12-21 02:20] VITALS: BP 122/73
[2017-12-21 05:54] LABS: GLUCOMETER DEV NAME(LOC) 3EI B; GLUCOSE,POINT OF CARE 145 MG/DL (70-110)
[2017-12-21 08:54] VITALS: BP 127/64
[2017-12-21] MEDS: OLANZapine 7.5 MG TABLET PO SCH (09:00)
[2017-12-21] MEDS: PRENATAL VIT#96/FERROUS FUM/FA TABLET PO SCH (09:00)
[2017-12-21] MEDS: MUPIROCIN CALCIUM 2% 22 GM OINTMENT NASAL SCH ×2 (09:00→17:17)
[2017-12-21 21:06] VITALS: BP 121/57
[2017-12-22 05:44] LABS: GLUCOMETER DEV NAME(LOC) 3EI B; GLUCOSE,POINT OF CARE 105 MG/DL (70-110)
[2017-12-22 08:05] VITALS: BP 113/57
[2017-12-22] MEDS: MUPIROCIN CALCIUM 2% 22 GM OINTMENT NASAL SCH ×2 (09:46→17:19)
[2017-12-22] MEDS: OLANZapine 7.5 MG TABLET PO SCH (09:46)
[2017-12-22] MEDS: PRENATAL VIT#96/FERROUS FUM/FA TABLET PO SCH (09:46)
[2017-12-22 18:24] LABS: GLUCOMETER DEV NAME(LOC) 3EC; GLUCOSE,POINT OF CARE 148 MG/DL (70-110)
[2017-12-22 20:16] VITALS: BP 131/83
[2017-12-23 00:18] VITALS: BP 126/81
[2017-12-23 08:15] VITALS: BP 122/69
[2017-12-23] MEDS ORDERED: PRENATAL VIT#96/FERROUS FUM/FA TABLET PO SCH (09:00)
[2017-12-23] MEDS: MUPIROCIN CALCIUM 2% 22 GM OINTMENT NASAL SCH ×2 (09:48→17:20)
[2017-12-23] MEDS: PRENATAL VIT#96/FERROUS FUM/FA TABLET PO SCH (09:48)
[2017-12-23 17:29] LABS: GLUCOMETER DEV NAME(LOC) PVLAB139; GLUCOSE,POINT OF CARE 95 MG/DL (70-110)
[2017-12-24 05:43] LABS: GLUCOMETER DEV NAME(LOC) PVLAB139; GLUCOSE,POINT OF CARE 101 MG/DL (70-110)
[2017-12-24 09:21] VITALS: BP 139/70
[2017-12-24] MEDS: PRENATAL VIT#96/FERROUS FUM/FA TABLET PO SCH (09:57)
[2017-12-24] MEDS: MUPIROCIN CALCIUM 2% 22 GM OINTMENT NASAL SCH ×2 (09:57→16:51)
[2017-12-24] MEDS: DiphenhydrAMINE HCL 25 MG CAPSULE PO PRN (16:45)
[2017-12-24] MEDS: HALOPERIDOL 5 MG TABLET PO SCH (16:46)
[2017-12-24 17:02] VITALS: BP 136/87
[2017-12-24 17:08] LABS: GLUCOMETER DEV NAME(LOC) PVLAB139; GLUCOSE,POINT OF CARE 131 MG/DL (70-110)
[2017-12-25 05:43] LABS: GLUCOMETER DEV NAME(LOC) PVLAB139; GLUCOSE,POINT OF CARE 91 MG/DL (70-110)
[2017-12-25 08:22] VITALS: BP 129/73
[2017-12-25] MEDS: PRENATAL VIT#96/FERROUS FUM/FA TABLET PO SCH (09:44)
[2017-12-25] MEDS: HALOPERIDOL 5 MG TABLET PO SCH ×2 (09:44→17:34)
[2017-12-25] MEDS: MUPIROCIN CALCIUM 2% 22 GM OINTMENT NASAL SCH ×2 (09:44→17:34)
[2017-12-25] MEDS: HALOPERIDOL 5 MG TABLET PO PRN (10:56)
[2017-12-25] MEDS: DiphenhydrAMINE HCL 25 MG CAPSULE PO PRN (10:56)
[2017-12-26 05:49] LABS: GLUCOMETER DEV NAME(LOC) PVLAB139; GLUCOSE,POINT OF CARE 88 MG/DL (70-110)
[2017-12-26 09:26] VITALS: BP 111/67
[2017-12-26] MEDS: PRENATAL VIT#96/FERROUS FUM/FA TABLET PO SCH (10:00)
[2017-12-26] MEDS: HALOPERIDOL 5 MG TABLET PO SCH ×2 (10:00→16:29)
[2017-12-26 16:46] VITALS: BP 134/77
[2017-12-26 17:23] LABS: GLUCOMETER DEV NAME(LOC) PVLAB139; GLUCOSE,POINT OF CARE 105 MG/DL (70-110)
[2017-12-27 05:43] LABS: GLUCOMETER DEV NAME(LOC) PVLAB139; GLUCOSE,POINT OF CARE 83 MG/DL (70-110)
[2017-12-27] MEDS: PRENATAL VIT#96/FERROUS FUM/FA TABLET PO SCH (10:05)
[2017-12-27] MEDS: HALOPERIDOL 5 MG TABLET PO SCH ×2 (10:05→16:21)
[2017-12-27 10:31] VITALS: BP 104/62
[2017-12-28 05:38] LABS: GLUCOMETER DEV NAME(LOC) PVLAB139; GLUCOSE,POINT OF CARE 81 MG/DL (70-110)
[2017-12-28] MEDS: PRENATAL VIT#96/FERROUS FUM/FA TABLET PO SCH (09:25)
[2017-12-28] MEDS: HALOPERIDOL 5 MG TABLET PO SCH ×2 (09:25→16:33)
[2017-12-28 09:52] VITALS: BP 119/70
[2017-12-28 16:43] LABS: GLUCOMETER DEV NAME(LOC) PVLAB139; GLUCOSE,POINT OF CARE 125 MG/DL (70-110)
[2017-12-28 16:58] VITALS: BP 121/65
[2017-12-29 06:14] LABS: GLUCOMETER DEV NAME(LOC) PVLAB139; GLUCOSE,POINT OF CARE 93 MG/DL (70-110)
[2017-12-29 08:47] VITALS: BP 149/100
[2017-12-29] MEDS: PRENATAL VIT#96/FERROUS FUM/FA TABLET PO SCH (09:06)
[2017-12-29] MEDS: HALOPERIDOL 5 MG TABLET PO SCH ×2 (09:06→16:48)
[2017-12-29 17:03] LABS: GLUCOMETER DEV NAME(LOC) PVLAB139; GLUCOSE,POINT OF CARE 128 MG/DL (70-110)
[2017-12-29 18:43] VITALS: BP 110/73
[2017-12-30 06:00] LABS: GLUCOMETER DEV NAME(LOC) PVLAB139; GLUCOSE,POINT OF CARE 95 MG/DL (70-110)
[2017-12-30 08:34] VITALS: BP 110/70
[2017-12-30] MEDS: PRENATAL VIT#96/FERROUS FUM/FA TABLET PO SCH (08:53)
[2017-12-30] MEDS: HALOPERIDOL 5 MG TABLET PO SCH ×2 (08:53→16:37)
[2017-12-30] MEDS ORDERED: HALO5TAB2 PO (15:43)
[2017-12-30] MEDS ORDERED: PREN1TAB37 PO (15:45)
[2017-12-30 16:00] VITALS: BP 116/68
[2017-12-30 16:53] LABS: GLUCOMETER DEV NAME(LOC) PVLAB139; GLUCOSE,POINT OF CARE 131 MG/DL (70-110)
== END 2017-12-30 23:15 | disposition home or self-care (01) | DRG 781 ==
LOC: EMS 17:37 → B3A 19:35 → 3EI 12-20 16:40
PROVIDERS: ADMIT Psychiatry & Neurology Child & Adolescent Psychiatry; ATTEND Psychiatry & Neurology Child & Adolescent Psychiatry
DX: O99.340 Other mental disorders complicating pregnancy, unspecified trimester (principal); F31.2 Bipolar disorder, current episode manic severe with psychotic features; E56.9 Vitamin deficiency, unspecified; E83.51 Hypocalcemia; E87.6 Hypokalemia; F12.90 Cannabis use, unspecified, uncomplicated; O99.330 Smoking (tobacco) complicating pregnancy, unspecified trimester; Z79.899 Other long term (current) drug therapy; O99.320 Drug use complicating pregnancy, unspecified trimester; F41.9 Anxiety disorder, unspecified; Z71.6 Tobacco abuse counseling; Z71.51 Drug abuse counseling and surveillance of drug abuser
CPT/HCPCS: 76700; 76801; 76805; 76811; 76817; 80074; 80307; 83036; 84132; 84439; 84443; 87081; 87086; 96372; 99285; G0480; J1200; J1630; J2060